=== PATIENT | male | born 1990 | race Caucasian/White ===

== ENCOUNTER 2016-05-03 11:40 | Emergency (ER) | payer MEDICAID, OTHER ==
[2016-05-03] MEDS ORDERED: ASPIRIN 81 MG CHEW TAB ONE (11:59)
[2016-05-03] MEDS ORDERED: LORAZEPAM 2 MG/ML VIAL ONE (12:47)
[2016-05-03] MEDS ORDERED: SODIUM CHLORIDE 0.9% 1,000 ML ONE (12:47)
== END 2016-05-03 17:07 | disposition home or self-care (01) ==
LOC: ER 11:40
DX: F15.10 Other stimulant abuse, uncomplicated (principal); R07.9 Chest pain, unspecified; F17.200 Nicotine dependence, unspecified, uncomplicated
CPT/HCPCS: 36415; 71010; 80053; 80307; 80320; 80329; 82550; 83735; 84484; 85025; 85610; 85730; 93005; 96361; 96374

== ENCOUNTER 2016-05-04 15:36 | Emergency (ER) | payer MEDICAID | END 2016-05-04 16:22 | disposition home or self-care (01) | LOC: ER 15:36 | DX: F10.10 Alcohol abuse, uncomplicated (principal); F15.10 Other stimulant abuse, uncomplicated; F17.210 Nicotine dependence, cigarettes, uncomplicated ==